=== PATIENT | male | born 1945 | race Caucasian/White ===

== ENCOUNTER 2016-07-26 09:53 | Outpatient (CLI) | payer MEDICARE, OTHER ==
[2015-08-04 09:40] VITALS: BP 136/74
--- NOTE | 2016-07-26 14:25 | Diagnostic Imaging Report ---
DINA BUTT ([employer]) - OP [facility] [address] [id number] Report Submission Date: July 26, 2016 1:20:13 PM CDT Patient Study Name: LOUANN ADAM Date: July 26, 2016 10:33:14 AM CDT Modality Type: CR Gender: M Description: SPINE : 41 Institution: [facility] Physician: DINA BUTT ([employer]) - OP The lumbar spine 5 views Clinical history: Pain Technique AP lateral oblique coned down Findings: A dextroscoliosis is present. Disc space narrowing is present at multiple levels greatest at L4/L5. No compression fracture or lytic changes are seen. Facet joint degenerative arthritis is present. There is an intact sacrum. Impression: Lumbar spondylosis No fracture or spondylolysis Dextroscoliosis Electronically signed on July 26, 2016 1:20:13 PM CDT by: Khalif CHARLES
--- NOTE | 2016-07-26 14:26 | Diagnostic Imaging Report ---
DINA BUTT (MANUFACTURING ASSOCIATE) - OP [facility] [address] [facility].[address] [address] Report Submission Date: July 26, 2016 1:21:47 PM CDT Patient Study Name: LOUANN ADAM Date: July 26, 2016 10:30:19 AM CDT Modality Type: CR Gender: M Description: SPINE : 41 Institution: [facility] Physician: DINA BUTT (MANUFACTURING ASSOCIATE) - OP Thoracic spine Clinical history mid back pain Technique AP lateral swimmer's Findings: There is compression fracture T8. Spurs arise from multiple levels. There is multilevel disc space narrowing. Calcified lymph nodes overlie the thoracic spine. There cervical spondylosis and lumbar spondylosis. Impression: Spondylosis Compression fracture of T8 of indeterminate age Electronically signed on July 26, 2016 1:21:47 PM CDT by: Khalif CHARLES
== END 2016-07-26 09:54 ==
LOC: RAD 09:53
PROVIDERS: ATTEND Nurse Practitioner Family
DX: M54.5 Low back pain (principal); M54.6 Pain in thoracic spine
CPT/HCPCS: 72072; 72110

== ENCOUNTER 2016-11-09 07:42 | Outpatient (CLI) | payer MEDICARE, OTHER ==
[2015-08-04 09:40] VITALS: BP 136/74
== END 2016-11-09 07:50 ==
LOC: LAB 07:42
PROVIDERS: ATTEND Nurse Practitioner
DX: R05 Cough (principal)
CPT/HCPCS: 87070; 87116; 87205; 87206

== ENCOUNTER 2016-11-10 07:15 | Outpatient (CLI) | payer MEDICARE, OTHER ==
[2015-08-04 09:40] VITALS: BP 136/74
== END 2016-11-10 09:24 ==
LOC: LAB 07:15
PROVIDERS: ATTEND Nurse Practitioner
DX: R05 Cough (principal)
CPT/HCPCS: 87070; 87116; 87205; 87206

== ENCOUNTER 2016-11-11 07:23 | Outpatient (CLI) | payer MEDICARE, OTHER ==
[2015-08-04 09:40] VITALS: BP 136/74
== END 2016-11-11 07:30 ==
LOC: LAB 07:23
PROVIDERS: ATTEND Nurse Practitioner
DX: R05 Cough (principal)
CPT/HCPCS: 87070; 87116; 87205; 87206

== ENCOUNTER 2016-11-19 07:57 | Outpatient (CLI) | payer MEDICARE, OTHER ==
[2015-08-04 09:40] VITALS: BP 136/74
== END 2016-11-19 08:00 ==
LOC: LAB 07:57
PROVIDERS: ATTEND Nurse Practitioner
DX: R13.10 Dysphagia, unspecified (principal)
CPT/HCPCS: 87070; 87116; 87206

== ENCOUNTER 2016-11-20 07:19 | Outpatient (CLI) | payer MEDICARE, OTHER ==
[2015-08-04 09:40] VITALS: BP 136/74
== END 2016-11-20 07:20 ==
LOC: LAB 07:19
PROVIDERS: ATTEND Nurse Practitioner
DX: J44.9 Chronic obstructive pulmonary disease, unspecified (principal)
CPT/HCPCS: 87070; 87116; 87205; 87206

== ENCOUNTER 2016-11-21 08:33 | Outpatient (CLI) | payer MEDICARE, OTHER ==
[2015-08-04 09:40] VITALS: BP 136/74
== END 2016-11-21 08:34 ==
LOC: LAB 08:33
PROVIDERS: ATTEND Nurse Practitioner
DX: J44.9 Chronic obstructive pulmonary disease, unspecified (principal)
CPT/HCPCS: 87070; 87116; 87205; 87206

== ENCOUNTER 2016-11-23 16:11 | Outpatient (CLI) | payer MEDICARE, OTHER ==
[2015-08-04 09:40] VITALS: BP 136/74
== END 2016-11-23 16:12 ==
LOC: RAD 16:11
PROVIDERS: ATTEND Nurse Practitioner
DX: R13.10 Dysphagia, unspecified (principal)
CPT/HCPCS: 74230

== ENCOUNTER 2017-05-22 08:49 | Day surgery (SDC) | payer MEDICARE, OTHER ==
[2015-08-04 09:40] VITALS: BP 136/74
--- NOTE | 2017-05-22 14:52 | GI Report ---
REFERRING PHYSICIAN: STEVEN Ibrahim COMMERCIAL LEASING MANAGER: Renzo Andrews MD PROCEDURE MEDICATION: Propofol as per anesthesia. 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 His mother had colon cancer. He also has Garcia's esophagus. He denies any changes in his bowel habits. He has had the tendency towards constipation. He has had an extremely atonic redundant colon in the past. PROCEDURE PERFORMED: Colonoscopy with polypectomy. PROCEDURE: An Olympus video colonoscope was advanced to the rectum. Again, the prep was fair. We did lavage and did suction. The colonoscope was advanced back and forth with reducing loops and with the aid of nurse compression, we finally were able to reach the base of the cecum. The ileocecal valve and base of the cecum were identified. At the hepatic flexure, the patient had like a 3 mm flat polyp removed with a cold snare. The transverse colon and ascending colon with no obvious intraluminal lesions noted, though a very atonic redundant colon. Likewise, the descending colon and sigmoid had a lot of redundancy. Retroflexion of the rectum showed some hemorrhoids. Patient tolerated the procedure well. FINDINGS: 1. Polyp at the hepatic flexure. 2. Persistent atonic redundant colon. 3. Fair prep. RECOMMENDATIONS: 1. Pending the pathology of the polyp, look at his colon again within 5 years. 2. Again, consider a [id number]-half prep or 2-day prep. 3. Encourage increasing fiber in his diet. 4. MiraLAX if needed. 5. Follow up with Cathy Davila. cc: STEVEN Ibrahim [facility]
== END 2017-05-22 08:50 ==
LOC: OPSURG 08:49
PROVIDERS: ATTEND Internal Medicine Gastroenterology
DX: D12.3 Benign neoplasm of transverse colon (principal); K22.70 Barrett's esophagus without dysplasia; K59.00 Constipation, unspecified; K59.8 Other specified functional intestinal disorders; K64.9 Unspecified hemorrhoids
CPT/HCPCS: 45385; J2001; J2704; J7120; S1016

== ENCOUNTER 2017-11-04 10:26 | Inpatient (IN) | payer MEDICARE, OTHER ==
--- NOTE | 2017-11-04 10:30 | ED Physician Documentation ---
General Adult - HISTORIAN Historian: patient - HPI Stated Complaint: abdominal pain Chief Complaint: Abdominal Pain Onset: hours (3) Timing: still present Severity: moderate Further Comments: yes (He states the pain is mid to upper middle abdominal pain. Per daughter when he called about one hour ago he was weak and lethargic almost . Denies a fever. He did eat this am around 7. No vomiting he is now feeling "slightly nauseated" his last bm was Monday afternoon. He has no sick contacts. No chest pain.) Last known Well Code/Unknown Code: Unknown - ROS CONST: no problems EYES/ENT: none CVS/RESP: none GI/: abdominal pain, nausea. denies: vomiting, diarrhea MS/SKIN/LYMPH: none NEURO/PSYCH: denies: headache, fainting, dizziness - PAST HX Past History: COPD, other (hyperlipidemia, GERD ) Surgeries/Procedures: other (appendectomy ) Immunizations: UTD Allergies/Adverse Reactions: Allergies Allergy/AdvReac Type Severity Reaction Status Date / Time No Known Allergies Allergy Verified 11/04/17 10:45 Home Medications: Ambulatory Orders Medication Instructions Recorded Omeprazole 40 mg PO BID 06/19/12 Tiotropium [place] [Spiriva] 1 inh IH D 06/19/12 Aspirin [Cedrick] 81 mg PO D 08/04/15 Fluticasone Propionate 50 mg TOP D 08/04/15 Montelukast Sodium 10 mg PO D 08/04/15 Calcium Carbonate [Calcium] 1,200 mg PO DAILY 11/04/17 Fluticasone/Salmeterol [Advair 2 each INH DAILY 11/04/17 250-50 Diskus] Multivit-Min/Iron Fum/Folic AC 1 each PO DAILY 11/04/17 [Lxpfd-Tunvbfm-Nsbtfqih Tablet] Pramipexole Di-HCl [Pramipexole ER] 0.275 mg PO BID 11/04/17 Pravastatin Sodium [Pravachol] 20 mg PO HS 11/04/17 - SOCIAL HX Smoking History: non-smoker Alcohol Use: none Drug Use: none - FAMILY HX Family History: No - VITAL SIGNS Vital Signs: Vital Signs Temp Pulse Resp BP Pulse Ox 136/74 08/04/15 10:22 - REVIEWED ASSESSMENTS Nursing Assessment Reviewed: Yes Vitals Reviewed: Yes Progress - Progress Progress: 1215: pt and daughter aware that we are awaiting lab. He states the pain is not changed. He is aware of a wait being possible due to lab wait. DG 1330: awaiting lab results. Resting in bed . No new complaints. DG 1400: awaiting lab results . No new complaints DG 1415: lab results returned CT ordered . Family aware DG 1520: pt and family aware of the results and Dr Masters agreeable to admission DG 1530: Pain is 4/10 DG ED Results Lab/Radiology - Radiology Radiology Impressions: CT of the abdomen and pelvis with contrast CLINICAL HISTORY: Abdominal pain. TECHNIQUE: CT of the abdomen and pelvis is performed with intravenous infusion of contrast. Sagittal and coronal reconstructions are performed by the technologist. FINDINGS: There are minimal atelectatic changes in the lung bases. There is no pleural effusion or coalescent infiltrate. The liver and spleen demonstrate fairly normal attenuation without focal defect. There are small calcified gallstones in the dependent gallbladder. Pancreas is prominent and there is stranding in the peripancreatic fat with thickening of Gerota's fascia on the left consistent with acute pancreatitis. There is no adrenal abnormality. The kidneys demonstrate fairly symmetric enhancement with small left renal cyst. Vascular calcification is present in the abdominal aorta without evidence of aneurysm. Gas and stool are present throughout the colon. Bladder is unremarkable. Prost ate is surgically absent. There are surgical clips in right lower quadrant from prior hernia repair. IMPRESSION: Acute pancreatitis. Cholelithiasis. Vascular calcification. Postoperative changes. Electronically signed on Nov 04, 2017 2:59:41 PM CDT by: Isaiah Kamara General Adult Physical Exam - PHYSICAL EXAM GENERAL APPEARANCE: no distress EENT: eye inspection normal, ENT inspection normal NECK: normal inspection RESPIRATORY: no resp distress, chest non-tender, breath sounds normal CVS: reg rate & rhythm, heart sounds normal, equal pulses, no murmur ABDOMEN: soft, no distension, tenderness (mid abdomen with palpation ), abnormal bowel sounds (hypoactive ) BACK: normal inspection, no CVA tenderness SKIN: warm/dry, normal color EXTREMITIES: non-tender, normal range of motion, no evidence of injury, no edema NEURO: oriented X3, CN's nml as tested, motor nml, sensation nml, mood/affect nml, cognition normal Discharge Clincal Impression: Acute pancreatitis Qualifiers: Pancreatitis type: other Acute pancreatitis complication: unspecified Qualified Code(s): K85.80 - Other acute pancreatitis without necrosis or infection Condition: Fair Disposition: 09 ADMITTED INPATIENT Decision to Admit: [id number] Date of Decison to Admit: 11/04/17 Decision Time: 15:21
[2017-11-04] MEDS ORDERED: ONDANSETRON HCL/PF 4 MG/ 2ML VIAL IVP ONE (10:46)
[2017-11-04] MEDS ORDERED: MAG HYDROX/ALUMINUM HYD/SIMETH 30 ML, Lidocaine 2%Visc 15ml 20 MG, PHENobarb/HYOSCY/ATR... PO ONE ×3 (10:48)
[2017-11-04] MEDS ORDERED: 0.9 % SODIUM CHLORIDE 1,000 ML IV ONE ×2 (11:00→15:32)
[2017-11-04] MEDS: 0.9 % SODIUM CHLORIDE 1,000 ML IV SCH ×2 (11:10→17:05)
[2017-11-04] MEDS ORDERED: Lidocaine 2%Visc 15ml 20 MG/ML UDC ONE (11:15)
[2017-11-04] MEDS ORDERED: MAGNESIUM, ALUMINUM HYDROXIDE 30 ML UDC PO ONE (11:15)
[2017-11-04 11:29] LABS: BASOPHILS % 0.5 (0.0-1.5); EOSINOPHILS % 2.3 % (0.0-6.8); MEAN CORPUSCULAR HEMOGLOBIN 30.5 pg (28.0-34.0); MEAN CORPUSCULAR VOLUME 95.1 fl (80.0-100.0); MONOCYTES % 5.1 % (0.0-11.0); NEUTROPHILS # 8.3 # k/uL (1.4-7.7)
[2017-11-04 14:06] LABS: TOTAL PROTEIN 6.9 g/dL (6.0-8.5)
--- NOTE | 2017-11-04 15:17 | Diagnostic Imaging Report ---
KIRK MONSALVE [facility] [address] [facility] [address] [place], [place]. [address] Report Submission Date: Nov 04, 2017 2:59:41 PM CDT Patient Study Name: LOUANN ADAM Date: Nov 04, 2017 2:31:39 PM CDT Modality Type: CT\SR Gender: M Description: CT ABD PELVIS W/ CON : 41 Institution: [facility] Physician: KIRK MONSALVE CT of the abdomen and pelvis with contrast CLINICAL HISTORY: Abdominal pain. TECHNIQUE: CT of the abdomen and pelvis is performed with intravenous infusion of contrast. Sagittal and coronal reconstructions are performed by the technologist. FINDINGS: There are minimal atelectatic changes in the lung bases. There is no pleural effusion or coalescent infiltrate. The liver and spleen demonstrate fairly normal attenuation without focal defect. There are small calcified gallstones in the dependent gallbladder. Pancreas is prominent and there is stranding in the peripancreatic fat with thickening of Gerota's fascia on the left consistent with acute pancreatitis. There is no adrenal abnormality. The kidneys demonstrate fairly symmetric enhancement with small left renal cyst. Vascular calcification is present in the abdominal aorta without evidence of aneurysm. Gas and stool are present throughout the colon. Bladder is unremarkable. Prostate is surgically absent. There are surgical clips in right lower quadrant from prior hernia repair. IMPRESSION: Acute pancreatitis. Cholelithiasis. Vascular calcification. Postoperative changes. Electronically signed on Nov 04, 2017 2:59:41 PM CDT by: Isaiah CHARLES
[2017-11-04] MEDS ORDERED: MORPHINE SULFATE 2 MG/ML PREFILLED SYR IVP ONE (15:31)
[2017-11-04] MEDS ORDERED: CIPROFLOXACIN/D5W 400 MG in PREMIX BAG 1 BAG IV ONE (15:41)
[2017-11-04 16:02] LABS: LIPASE >3000 U/L (13-60)
[2017-11-04 16:27] VITALS: BMI 24.4
--- NOTE | 2017-11-04 16:51 | History and Physical Report ---
History of Present Illnes - History of Present Illness Reason for Visit: Acute Pancreatitis History of Present Illness: Derek was at work this morning and began to experience some pain in his mid abdomen and nausea. It did not amie, and he came to the ER for evaluation. His CT showed acute pancreatitis, and his lipase is >3000. He is admitted for treatment of acute pancreatitis. - Past Medical History Cardiac: Hyperlipidemia. 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 Gastrointestinal: denies: Constipation, Diverticulosis Heme/Onc: denies: Anemia NOS Hepatobiliary: denies: Cirrhosis, Cholelithiasis Psych: denies: Anxiety Musculoskeletal: denies: Chronic low back pain Rheumatologic: denies: Fibromyalgia Infectious Disease: denies: Other ENT: denies: Other Renal/: Other (Prostate cancer) Endocrine: denies: Diabetes, Hyperthyroidism, Hypothyroidism Dermatology: denies: Eczema - Past Surgical History Past Surgical History: Appendectomy, Other (Prostatectomy, T8 kyphoplasty, inguinal hernia repair) - Past Social History Smoke: No Alcohol: Occassional (About 1 drink per day) Drugs: None Lives: With Family Domestic Violence: Negative - Health Maintenance Health Maintenance: Cholesterol, Tetanus Influenza Vaccine: Current for this Influenza Season Pneumonia Vaccine: Yes Resuscitation Status: Full Code - Unable to Obtain History Unable to Obtain: No Review of Systems - Review of Systems Constitutional: Sweats, Weakness. negative: Fever, Chills Eyes: negative: pain ENT: negative: Ear Pain Respiratory: Shortness of Breath (chronic). negative: Cough Cardiovascular: negative: Chest Pain, Palpitations Gastrointestinal: Nausea, Abdominal Pain (med epigastric). negative: Diarrhea, Constipation Genitourinary: negative: Dysuria Musculoskeletal: negative: Neck Pain, Shoulder Pain Skin: negative: Other Neurological: negative: Confusion, Other - Medications/Allergies Allergies/Adverse Reactions: Allergies Allergy/AdvReac Type Severity Reaction Status Date / Time No Known Allergies Allergy Verified 11/04/17 10:45 Home Medications: Home Medications Calcium Carbonate [Calcium] 1,200 mg PO DAILY 11/04/17 Fluticasone/Salmeterol [Advair 250-50 Diskus] 2 each INH DAILY 11/04/17 Multivit-Min/Iron Fum/Folic AC [Uviee-Kujwfnt-Hckenltc Tablet] 1 each PO DAILY 11/04/17 Pramipexole Di-HCl [Pramipexole ER] 0.275 mg PO BID 11/04/17 Pravastatin Sodium [Pravachol] 20 mg PO HS 11/04/17 Current Inpatient Medications: Current Inpatient Medications MAG HYDROX/ALUMINUM HYD/SIMETH 30 ml/ Lidocaine HCl 20 mg/Belladonna Alkaloids/Phenobarbital 10 ml 0 ml PO NOW ONE Stop: 11/04/17 10:49 Sodium Chloride (Normal Saline) 1,000 mls @ 1,000 mls/hr IV Q10H ERNESTO Last Admin: 11/04/17 11:10 Dose: 1,000 mls/hr Exam - Exam Vital Signs: Vital Signs (72 hours) 11/04/17 11/04/17 11/04/17 10:30 15:36 16:00 Temperature 97.6 F 97.0 F L 97.7 F Pulse Rate [ 76 57 L 76 Left Pulse ox] Respiratory 16 16 16 Rate Blood Pressure 99/55 118/62 124/76 [Left Arm] O2 Sat by Pulse 94 97 94 Oximetry General: Alert, Oriented to Person, Moderate distress HEENT: Atraumatic, PERRLA Neck: No: Stridor, Rigidity Lungs: Prolonged Expiration. No: Respiratory Distress Cardiovascular: Regular rate Murmur: No: Systolic Murmur Abdomen: Normal bowel sounds, Other (Mid abdominal tenderness) Genitourinary: No: Other Male Genitourinary: No: Other Female Genitourinary: No: Other Integumentary: Normal, [place], Warm, Dry Extremities: No clubbing, No cyanosis, No edema Neurological: Normal speech (slight hoarseness is noted (present since treatment for MAC)) Psych/Mental Status: Mental status NL - Laboratory Results Laboratory Results: Laboratory Results 11/04/17 11/04/17 11/04/17 11:00 11:00 11:00 WBC 12.10 H RBC 4.79 Hgb 14.6 Hct 45.6 MCV 95.1 MCH 30.5 MCHC 32.0 RDW 12.8 Plt Count 363 Neut % (Auto) 68.7 Lymph % (Auto) 21.6 [place] % (Auto) 5.1 Eos % (Auto) 2.3 Baso % (Auto) 0.5 Neut # (Auto) 8.3 H Lymph # (Auto) 2.6 [place] # (Auto) 0.6 Eos # (Auto) 0.3 Baso # (Auto) 0.1 Reactive Lymphs % 1.9 Reactive Lymphs # 0.2 Sodium 141 Potassium 4.1 Chloride 102 Total Carbon Dioxide 25 BUN 15 Creatinine 1.06 Estimated GFR mL/min 88 L Glucose 132 H Calcium 10.0 Total Bilirubin 0.5 AST 27 ALT 20 Alkaline Phosphatase 69 Total Protein 6.9 Albumin 4.4 Lipase >3000 H Assessment/Plan - Assessment/Plan (1) Acute pancreatitis Status: Acute Current Visit: Yes Qualifiers: Pancreatitis type: other Acute pancreatitis complication: unspecified Qualified Code(s): K85.80 - Other acute pancreatitis without necrosis or infection Assessment: Review of current literature does not recommend empiric prophylaxis with antibiotics Make NPO MSO4 for pain control Check Lipase in am. (2) COPD (chronic obstructive pulmonary disease) Status: Acute Current Visit: Yes Qualifiers: COPD type: unspecified COPD Qualified Code(s): J44.9 - Chronic obstructive pulmonary disease, unspecified Assessment: Chronic, will start PRN nebulizer treatments (3) Leukocytosis Status: Acute Current Visit: Yes Assessment: Due to acute pancreatitis Plan: Check CBC in am (4) Elevated lipase Status: Acute Current Visit: Yes Assessment: Due to pancreatitis Plan: Follow Lipase VTE Assessment - RISK FACTOR SCORE VTE RISK FACTOR SCORES: AGE OVER 60 YEARS, ANTICIPATED BED CONFINEMENT OR IMMOBILIZATION > 24 HOURS - RISK VTE MODERATE RISK: SCORE OF 2 (RISK PROXIMAL DVT 2-4%) PROPHYAXIS NEEDED (Start Lovenox)
[2017-11-04] MEDS ORDERED: MORPHINE SULFATE 2 MG/ML PREFILLED SYR IVP PRN (16:56)
[2017-11-04] MEDS ORDERED: ONDANSETRON HCL/PF 4 MG/ 2ML VIAL IVP PRN (16:56)
[2017-11-04] MEDS ORDERED: IPRATROPIUM/ALBUTEROL SULFATE 3 ML AMPUL.NEB NEB PRN (17:01)
[2017-11-04] MEDS ORDERED: ENOXAPARIN SODIUM 30 MG/0.3 ML DISP.SYRIN SQ ONE (17:55)
[2017-11-04] MEDS: ENOXAPARIN SODIUM 30 MG/0.3 ML DISP.SYRIN SQ SCH (17:59)
[2017-11-04] MEDS ORDERED: TIOTROPIUM BROMIDE INHALER IH ONE (18:25)
[2017-11-04] MEDS ORDERED: FLUTICASONE/SALMETEROL 250-50 INHALER IH ONE (18:25)
[2017-11-04] MEDS: MORPHINE SULFATE 2 MG/ML PREFILLED SYR IVP PRN ×2 (18:34→21:02)
[2017-11-04] MEDS: FLUTICASONE/SALMETEROL 250-50 INHALER IH SCH (21:02)
[2017-11-05] MEDS ORDERED: MORPHINE SULFATE 2 MG/ML PREFILLED SYR ONE ×3 (01:21→10:00)
[2017-11-05] MEDS: MORPHINE SULFATE 2 MG/ML PREFILLED SYR IVP PRN ×3 (01:30→10:15)
[2017-11-05 07:15] LABS: BASOPHILS % 0.2 (0.0-1.5); MEAN CORPUSCULAR HEMOGLOBIN 30.6 pg (28.0-34.0); MEAN CORPUSCULAR VOLUME 92.7 fl (80.0-100.0); MONOCYTES % 5.7 % (0.0-11.0); NEUTROPHILS # 7.2 # k/uL (1.4-7.7)
[2017-11-05 07:30] LABS: APPEARANCE,URINE CLEAR (CLEAR); COLOR,URINE YELLOW (YELLOW); OCCULT BLOOD,URINE NEGATIVE (NEGATIVE); PH URINE 5.5 (5.0 - 8.0); UROBILINOGEN URINE 0.2 Eu (0.2-1.0)
[2017-11-05 07:45] LABS: eGFR (African) > 60; eGFR (Non-African) > 60
[2017-11-05] MEDS: 0.9 % SODIUM CHLORIDE 1,000 ML IV SCH ×6 (07:45→19:14)
[2017-11-05] MEDS: TIOTROPIUM BROMIDE INHALER IH SCH (08:52)
[2017-11-05] MEDS: FLUTICASONE/SALMETEROL 250-50 INHALER IH SCH ×2 (08:52→20:48)
[2017-11-05] MEDS ORDERED: 0.9 % SODIUM CHLORIDE 1,000 ML IV ONE ×2 (09:02→19:10)
[2017-11-05] MEDS ORDERED: ENOXAPARIN SODIUM 30 MG/0.3 ML DISP.SYRIN SQ ONE (12:40)
--- NOTE | 2017-11-05 13:33 | Inpatient Progress Note ---
Subjective - Required Recertification Statement I anticipate X number of days because-include discharge plan: 2 - Review of Systems Events since last encounter: Lipase is coming down. It is now measurable at 2695. He states that he is hungry. His pain is fairly well managed using MSO4. He has some nausea, but no emesis. No BM, but he says that he really doesn't expect to have one as he hasn't eaten for over a day now. General: Denies: Chills, Night Sweats HEENT: Denies: Head Aches Pulmonary: Denies: Dyspnea Cardiovascular: Denies: Chest Pain Gastrointestinal: Nausea, Abdominal Pain. Denies: Vomiting Genitourinary: Denies: Dysuria Musculoskeletal: Denies: Neck Pain Neurological: Denies: Weakness Objective - Exam Vitals and I&O: Vital Signs Temp 98.7 F 11/05/17 10:00 Pulse 60 11/05/17 11:00 Resp 22 11/05/17 11:00 BP 117/75 11/05/17 10:00 Pulse Ox 94 11/05/17 10:00 Intake & Output 11/04/17 11/05/17 11/05/17 23:59 11:59 23:59 Intake Total 200 4657 Balance 200 4657 Weight 79.379 kg Intake: IV 200 4657 Left Antecubital 200 4657 Oral 0 0 Other: Voiding Method Toilet Toilet # Voids 3 General: Alert, Oriented to Person, Oriented to Place, Oriented to Time, Cooperative, Mild distress HEENT: Atraumatic, PERRLA, EOMI Neck: Supple, No JVD Lungs: Clear to auscultation Cardiovascular: Regular rate Abdomen: Normal bowel sounds, Other (Tender in the epigastrium to left upper quadrant. Less so in the RUQ) Extremities: No clubbing, No cyanosis Skin: Normal, Nellie, Warm Neurological: Normal speech Psych/Mental Status: Mental status NL - Results Results: Laboratory Results WBC 9.10 K/ul (4.00-12.00) 11/05/17 07:00 RBC 4.72 M/ul (3.90-5.20) 11/05/17 07:00 Hgb 14.5 g/dL (12.0-18.0) 11/05/17 07:00 Hct 43.7 % (37.0-53.0) 11/05/17 07:00 MCV 92.7 fl (80.0-100.0) 11/05/17 07:00 MCH 30.6 pg (28.0-34.0) 11/05/17 07:00 MCHC 33.0 g/dL (30.0-36.0) 11/05/17 07:00 RDW 13.0 % (11.3-14.3) 11/05/17 07:00 Plt Count 285 K/mm3 (130-400) 11/05/17 07:00 Neut % (Auto) 78.3 % (39.0-79.0) 11/05/17 07:00 Lymph % (Auto) 14.0 % (16.0-50.0) L 11/05/17 07:00 [place] % (Auto) 5.7 % (0.0-11.0) 11/05/17 07:00 Eos % (Auto) 1.0 % (0.0-6.8) 11/05/17 07:00 Baso % (Auto) 0.2 (0.0-1.5) 11/05/17 07:00 Neut # (Auto) 7.2 # k/uL (1.4-7.7) 11/05/17 07:00 Lymph # (Auto) 1.3 # k/uL (0.6-4.0) 11/05/17 07:00 [place] # (Auto) 0.5 # k/uL (0.0-0.9) 11/05/17 07:00 Eos # (Auto) 0.1 # k/uL (0.0-0.6) 11/05/17 07:00 Baso # (Auto) 0.0 # k/uL (0.0-0.5) 11/05/17 07:00 Reactive Lymphs % 0.8 % (0.0-5.0) 11/05/17 07:00 Reactive Lymphs # 0.1 # k/uL (0.0-0.8) 11/05/17 07:00 Sodium 139 mmol/L (136-145) 11/05/17 07:00 Potassium 3.8 mmol/L (3.5-5.1) 11/05/17 07:00 Chloride 103 mmol/L (98-107) 11/05/17 07:00 Carbon Dioxide 28 mmol/L (22-30) 11/05/17 07:00 Total Carbon Dioxide 25 mmol/L (22-29) 11/04/17 11:00 BUN 12 mg/dL (9-20) 11/05/17 07:00 Creatinine 0.80 mg/dL (0.66-1.25) 11/05/17 07:00 Estimated Creat Clear 92 11/05/17 07:00 Est GFR ( Amer) > 60 (60-) 11/05/17 07:00 Est GFR (Non-Af Amer) > 60 (60-) 11/05/17 07:00 Estimated GFR mL/min 88 L 11/04/17 11:00 Glucose 97 mg/dL (74-106) 11/05/17 07:00 Calcium 8.5 mg/dL (8.4-10.2) 11/05/17 07:00 Total Bilirubin 0.8 mg/dL (0.2-1.3) 11/05/17 07:00 AST 28 U/L (15-46) 11/05/17 07:00 ALT 40 U/L (13-69) 11/05/17 07:00 Alkaline Phosphatase 69 U/L (38-126) 11/05/17 07:00 Total Protein 6.6 g/dL (6.3-8.2) 11/05/17 07:00 Albumin 3.5 g/dL (3.5-5.0) 11/05/17 07:00 Lipase 2695 U/L (23-300) H 11/05/17 07:00 Urine Color Yellow (YELLOW) 11/04/17 11:05 Urine Appearance Clear (CLEAR) 11/04/17 11:05 Urine pH 5.5 (5.0 - 8.0) 11/04/17 11:05 Ur Specific [place] 1.020 (1.010-1.030) 11/04/17 11:05 Urine Protein 1+ mg/dL (NEGATIVE) H 11/04/17 11:05 Urine Ketones T mg/dL (NEGATIVE) 11/04/17 11:05 Urine Occult Blood Negative (NEGATIVE) 11/04/17 11:05 Urine Nitrite Negative (NEGATIVE) 11/04/17 11:05 Urine Bilirubin Negative (NEGATIVE) 11/04/17 11:05 Urine Urobilinogen 0.2 Eu (0.2-1.0) 11/04/17 11:05 Ur Leukocyte Esterase Negative (NEGATIVE) 11/04/17 11:05 Urine Glucose Negative mg/dL (NEGATIVE) 11/04/17 11:05 Assessment/Plan - Assessment/Plan (1) Acute pancreatitis Status: Acute Current Visit: Yes Qualifiers: Pancreatitis type: other Acute pancreatitis complication: unspecified Qualified Code(s): K85.80 - Other acute pancreatitis without necrosis or infection Assessment: Improved Plan: Continue NPO Follow Lipase If lipase trending down in am, will consider starting clear liquids (2) COPD (chronic obstructive pulmonary disease) Status: Acute Current Visit: Yes Qualifiers: COPD type: unspecified COPD Qualified Code(s): J44.9 - Chronic obstructive pulmonary disease, unspecified Assessment: Stable on current regimen (3) Leukocytosis Status: Acute Current Visit: Yes Assessment: Improved (4) Elevated lipase Status: Acute Current Visit: Yes Assessment: Due to pancreatitis
[2017-11-05] MEDS: ENOXAPARIN SODIUM 30 MG/0.3 ML DISP.SYRIN SQ SCH (18:08)
[2017-11-06] MEDS ORDERED: MORPHINE SULFATE 2 MG/ML PREFILLED SYR ONE ×2 (01:00→05:43)
[2017-11-06] MEDS: MORPHINE SULFATE 2 MG/ML PREFILLED SYR IVP PRN ×2 (01:07→06:05)
[2017-11-06] MEDS ORDERED: 0.9 % SODIUM CHLORIDE 1,000 ML IV ONE (04:13)
[2017-11-06] MEDS: 0.9 % SODIUM CHLORIDE 1,000 ML IV SCH (04:17)
[2017-11-06 06:24] LABS: MEAN CORPUSCULAR VOLUME 91.9 fl (80.0-100.0)
[2017-11-06 06:37] LABS: eGFR (African) > 60; eGFR (Non-African) > 60
--- NOTE | 2017-11-06 07:13 | Discharge Summary ---
Discharge Summary - Discharge Sumary History of Present Illness: Derek was at work this morning and began to experience some pain in his mid abdomen and nausea. It did not amie, and he came to the ER for evaluation. His CT showed acute pancreatitis, and his lipase is >3000. He is admitted for treatment of acute pancreatitis. Condition at Discharge: Stable Home Medications: Ambulatory Orders Medication Instructions Recorded Omeprazole 40 mg PO BID 06/19/12 Tiotropium [place] [Spiriva] 1 inh IH D 06/19/12 Aspirin [Cedrick] 81 mg PO D 08/04/15 Fluticasone Propionate 50 mg TOP D 08/04/15 Montelukast Sodium 10 mg PO D 08/04/15 Calcium Carbonate [Calcium] 1,200 mg PO DAILY 11/04/17 Fluticasone/Salmeterol [Advair 2 each INH DAILY 11/04/17 250-50 Diskus] Multivit-Min/Iron Fum/Folic AC 1 each PO DAILY 11/04/17 [Xapqn-Zpgmlxs-Yidpbqgi Tablet] Pramipexole Di-HCl [Pramipexole ER] 0.275 mg PO BID 11/04/17 Pravastatin Sodium [Pravachol] 20 mg PO HS 11/04/17 Consultations this Visit: None Procedures this Visit: None Allergies/Adverse Reactions: Allergies Allergy/AdvReac Type Severity Reaction Status Date / Time No Known Allergies Allergy Verified 11/04/17 10:45 Patient Problems: Current Active Problems Problem Status Onset Acute pancreatitis Acute COPD (chronic obstructive pulmonary disease) Acute Elevated lipase Acute Leukocytosis Acute Discharge Summary: Patient was admitted with pancreatitis and gallstones. He was made NPO and treated with IVF and morphine. He did very well, requiring little morphine. Lipase went from 3000 - 2650 - 350. WBC normalized from 12 to 9. Bilirubin started to trend up - went from 0.5 to 1.1. He was transferred to [facility] in stable condition for a cholecystecomy with ERCP. Hospital Course: Discharge Dx: Gallstone pancreatitis. COPD. HLD. GERD. Disposition - Transfer to [facility] for ERCP and cholecystectomy
[2017-11-06] MEDS: FLUTICASONE/SALMETEROL 250-50 INHALER IH SCH (08:18)
[2017-11-06] MEDS: TIOTROPIUM BROMIDE INHALER IH SCH (08:18)
[2017-11-06 09:23] VITALS: BP 114/72
== END 2017-11-06 09:42 | disposition short-term general hospital (02) | DRG 444 ==
LOC: ED 10:26 → UNDOADMIN 15:30 → SOUTH 15:30
PROVIDERS: ADMIT Family Medicine; ATTEND Family Medicine
DX: K80.20 Calculus of gallbladder without cholecystitis without obstruction (principal); K85.80 Other acute pancreatitis without necrosis or infection; J44.9 Chronic obstructive pulmonary disease, unspecified; E78.5 Hyperlipidemia, unspecified; K21.9 Gastro-esophageal reflux disease without esophagitis
CPT/HCPCS: 74177; 80053; 81002; 83690; 85025; 85027; 93005; A9270; J1650; J2270; J2405; J7030; 96365; 96375; 99222; 99232; 99238; Q9967; S1016

== ENCOUNTER 2018-02-26 09:49 | Day surgery (SDC) | payer MEDICARE, OTHER ==
[~2018-02-26 09:49] MED LIST: LACTATED RINGERS 1,000 ML IV.SOLN IV ONE; PROPOFOL 200 MG/20 ML VIAL IV ONE; SALINE FLUSH 10 ML DISP.SYRIN IVF ONE
--- NOTE | 2018-03-06 13:11 | GI Report ---
REFERRING PHYSICIAN: STEVEN Ibrahim SCREW CUTTER: Renzo Andrews MD PROCEDURE MEDICATION: Propofol as per anesthesia. INDICATIONS: Patient is a 72-year-old man who has had intermittent difficulty swallowing and a history of Garcia's esophagus. He was hospitalized in October after a bout of pancreatitis related to biliary disease. He did have a cholecystectomy. He has had no return of the pain since that time. He had his colon looked at back in April 2017. He feels that occasionally food seems to stop. He does not have heartburn taking his PPI twice a day. PROCEDURE PERFORMED: Endoscopy and esophageal dilatation and biopsies. PROCEDURE: An Olympus video endoscope is passed through the esophagus under direct visualization. Patient may have a motility disorder. I really do not see any esophageal peristaltic activity and there is kind of some mucus and exudate coating the wall. He does have grade 2 esophagitis at the GE junction. The stomach is entered. Cardia, no mass. Fundus and body of antrum with atrophic gastritis. Pylorus is open. Duodenal bulb and first and second part of the duodenum were examined and were normal. A guidewire is placed in the stomach. The endoscope was removed and a 51- Savary-Elan dilator passed without resistance. The endoscope was reintroduced. 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 Biopsies were taken of the GE junction. The patient has grade 2 esophagitis. It does not look like obvious Garcia's this time, but we will take biopsies and see. FINDINGS: 1. Esophageal motility disease. 2. Esophagitis. RECOMMENDATIONS: 1. Soft diet today. 2. Continue the PPI at least once a day before his first meal. 3. Recommend taking an antacid such as Gaviscon at bedtime and sleep with the bed elevated. 4. If there is still Garcia's on biopsies, he needs it re-looked at again in 3 years. 5. Avoid cold liquids with meals and pills. 6. Follow up with Cathy Davila. cc: STEVEN Ibrahim [facility] CLINICAndres
== END 2018-02-26 09:50 ==
LOC: OPSURG 09:49
PROVIDERS: ATTEND Internal Medicine Gastroenterology
DX: K22.4 Dyskinesia of esophagus (principal); K20.9 Esophagitis, unspecified; Z87.19 Personal history of other diseases of the digestive system
CPT/HCPCS: 43239; J2704; J7120; S1016

== ENCOUNTER 2018-06-22 09:54 | Outpatient (CLI) | payer MEDICARE, OTHER ==
[2018-06-22] MEDS ORDERED: DENOSUMAB (NF) 60 MG/ML SYRINGE SQ ONE (11:00)
== END 2018-06-22 10:15 ==
LOC: INF 09:54
PROVIDERS: ATTEND Nurse Practitioner Family
DX: M81.0 Age-related osteoporosis without current pathological fracture (principal)
CPT/HCPCS: 96372; J0897

== ENCOUNTER 2019-01-04 08:00 | Outpatient (CLI) | payer MEDICARE, OTHER ==
[2019-01-04] MEDS ORDERED: DENOSUMAB (NF) 60 MG/ML SYRINGE SQ ONE (09:00)
== END 2019-01-04 08:25 ==
LOC: INF 08:00
PROVIDERS: ATTEND Nurse Practitioner Family
DX: M81.0 Age-related osteoporosis without current pathological fracture (principal)
CPT/HCPCS: J0897